=== PATIENT | female | born 1955 | race Hispanic/Latino ===

== ENCOUNTER 2018-04-04 08:21 | Emergency (ER) | payer OTHER ==
--- OUTSIDE RECORDS SUMMARY | 2018-04-04 08:23 | XMS REPORT ---
:1955 Author Organization [employer] Care Team Providers Name Role Phone Salomón Adler Provider Role Unavailable Allergies, Adverse Reactions, Alerts Substance Reaction Event Type N.K.D.A. Info Not Available Non Drug Allergy Problems Problem Type Condition Code Onset Dates Condition Status Problem History of kidney stones Z87.442 Active Problem HTN, goal below 140/90 I10 Active Problem Mixed hyperlipidemia E78.2 Active Assessment Encounter for screening colonoscopy Z12.11 Active Medications Medication Code Code Instructions Start End Date Status Dosage System Date Hair Skin [facility] [id number] - Orally Active as directed Nails Results No Known Results Summary Purpose [employer] Submission
--- OUTSIDE RECORDS SUMMARY | 2018-04-04 08:23 | XMS REPORT ---
:1955 Author Organization [employer] Care Team Providers Name Role Phone Fernandez, Victor M Provider Role Unavailable Allergies, Adverse Reactions, Alerts Substance Reaction Event Type N.K.D.A. Info Not Available Non Drug Allergy Problems Problem Type Condition Code Onset Dates Condition Status Assessment Screening mammogram, encounter for Z12.31 Active Assessment History of kidney stones Z87.442 Active Assessment Screening for colon cancer Z12.11 Active Assessment Encounter for screening for other Z11.59 Active viral diseases Problem History of kidney stones Z87.442 Active Problem HTN, goal below 140/90 I10 Active Problem Mixed hyperlipidemia E78.2 Active Assessment Mixed hyperlipidemia E78.2 Active Assessment HTN, goal below 140/90 I10 Active Assessment Encounter for preventative adult Z00.01 Active health care exam with abnormal findings Medications Medication Code Code Instructions Start End Date Status Dosage System Date Hair Skin [facility] [id number] - Orally Active as directed Nails Results No Known Results Summary Purpose [employer] Submission
[2018-04-04] MEDS ORDERED: KETOROLAC 30 MG/ML INJ ONE (08:53)
--- NOTE | 2018-04-04 11:19 | EDPHYS ---
Physician Documentation [facility] Name: Chika Mariee Age: 62 yrs Sex: Female : 1955 Arrival Date: 04/04/2018 Time: 08:23 Bed 5 Private MD: Victor M Fernandez ED Physician Castillo Gonzalez HPI: 04/04 08:46 This 62 yrs old Female presents to ER via Unassigned with complaints of Leg rn Pain. 08:46 The patient presents with pain. The complaints affect the right quadriceps. Onset: The rn symptoms/episode began/occurred 3 day(s) ago. Modifying factors: The symptoms are alleviated by remaining still, the symptoms are aggravated by movement. Severity of symptoms: At their worst the symptoms were moderate, in the emergency department the symptoms have improved. The patient has not experienced similar symptoms in the past. The patient has not recently seen a physician. Reports RLE pain, intermittent, for 2-3 days, when this began tried a new exercise in her house, was walking with forceful backward kicks, did not stretch or warmup, pain only in quadricep area, no swelling, no skin change, no fall or direct trauma. No fever. . - Family history:: not pertinent. - Hospitalizations: : No recent hospitalization is reported. ROS: 08:46 Constitutional: Negative for fever, chills, and weight loss, Eyes: Negative for injury, rn pain, redness, and discharge, Cardiovascular: Negative for chest pain, palpitations, and edema, Respiratory: Negative for shortness of breath, cough, wheezing, and pleuritic chest pain, Abdomen/GI: Negative for abdominal pain, nausea, vomiting, diarrhea, and constipation, Back: Negative for injury and pain, MS/Extremity: + RLE pain Skin: Negative for injury, rash, and discoloration, Neuro: Negative for headache, weakness, numbness, tingling, and seizure. Exam: 08:46 Constitutional: This is a well developed, well nourished patient who is awake, alert, rn and in no acute distress. Back: No spinal tenderness. No costovertebral tenderness. Full range of motion. Skin: Warm, dry with normal turgor. Normal color with no rashes, no lesions, and no evidence of cellulitis. MS/ Extremity: Pulses equal, no cyanosis. Neurovascular intact. Full, normal range of motion. Equal circumference. Mild tenderness right quadriceps region, soft, no skin changes MDM: 08:46 Patient medically screened. rn 08:46 Differential diagnosis: tendonitis, tendon injury, ligamentous injury, muscle strain. rn Data reviewed: vital signs, nurses notes, and as a result, I will discharge patient. Counseling: I had a detailed discussion with the patient and/or guardian regarding: the historical points, exam findings, and any diagnostic results supporting the discharge/admit diagnosis, the need for outpatient follow up, to return to the emergency department if symptoms worsen or persist or if there are any questions or concerns that arise at home. Special discussion: I discussed with the patient/guardian in detail that at this point there is no indication for admission to the hospital. It is understood, however, that if the symptoms persist or worsen the patient needs to return immediately for re-evaluation. Administered Medications: No medications were administered Disposition: 04/04/18 08:50 Discharged to Home. Impression: Strain of right quadriceps muscle, fascia and tendon. - Condition is Stable. - Discharge Instructions: Muscle Strain. - Medication Reconciliation Form, Thank You Letter, Antibiotic Education, Prescription Opioid Use form. - Follow up: Private Physician; When: As needed; Reason: Recheck today's complaints, Re-evaluation by your physician. - Problem is new. - Symptoms have improved. Signatures: Castillo Gonzalez MD MD rn Calderon, Audri, RN RN aa5 Corrections: (The following items were deleted from the chart) 09: 08:50 04/04/2018 08:50 Discharged to Home. Impression: Strain of right quadriceps aa5 muscle, fascia and tendon. Condition is Stable. Forms are Medication Reconciliation Form, Thank You Letter, Antibiotic Education, Prescription Opioid Use. Follow up: Private Physician; When: As needed; Reason: Recheck today's complaints, Re-evaluation by your physician. Problem is new. Symptoms have improved. rn
== END 2018-04-04 09:09 | disposition home or self-care (01) ==
LOC: ER 08:21
DX: S76.111A Strain of right quadriceps muscle, fascia and tendon, initial encounter (principal); Y93.B9 Activity, other involving muscle strengthening exercises; Y92.019 Unspecified place in single-family (private) house as the place of occurrence of the external cause

== ENCOUNTER 2018-04-13 07:35 | Day surgery (SDC) | payer OTHER ==
--- OUTSIDE RECORDS SUMMARY | 2018-04-13 07:47 | XMS REPORT ---
[...] Date Status Dosage System Date Hair Skin [facility] [id number] - Orally Active as directed Nails Results No Known Results Summary Purpose [employer] Submission
--- OUTSIDE RECORDS SUMMARY | 2018-04-13 07:47 | XMS REPORT ---
[...] Date Status Dosage System Date Hair Skin [facility] [id number] - Orally Active as directed Nails Results No Known Results Summary Purpose [employer] Submission
[2018-04-13] MEDS ORDERED: SIMETHICONE 40 MG/ 0.6 ML ONE (07:58)
[2018-04-13] MEDS ORDERED: Ringers Lactate 1,000 ML IV ONE (08:07)
[2018-04-13] MEDS ORDERED: PROPOFOL 200 MG/20 ML VIAL IV ONE (08:38)
[2018-04-13] MEDS ORDERED: MIDAZOLAM HCL 2 MG/2 ML INJ ONE (08:39)
--- NOTE | 2018-04-13 09:03 | ENDO RPT ---
[address], [address] COLONOSCOPY PROCEDURE REPORT EXAM DATE: 04/13/2018 PATIENT NAME: Chika Mariee MR #: [id number] BIRTHDATE: 1955 ATTENDING: Salomón Adler DR STATUS: outpatient CONVERSION WORKER: Shazia Gray RN and Valeriy Florian [facility] INDICATIONS: The patient is a 62 yr old Female here for a colonoscopy due to colon cancer screening PROCEDURE PERFORMED: Colonoscopy with biopsy - cold polypectomy MEDICATIONS: Per Anesthesia. ESTIMATED BLOOD LOSS: None CONSENT: The patient understands the risks and benefits of the procedure and understands that these risks include, but are not limited to: sedation, allergic reaction, infection, perforation and/or bleeding. Alternative means of evaluation and treatment include, among others: physical exam, x-rays, and/or surgical intervention. The patient elects to proceed with this endoscopic procedure. DESCRIPTION OF PROCEDURE: During intra-op preparation period all mechanical medical equipment was checked for proper function. Hand hygiene and appropriate measures for infection prevention was taken. Procedure, possible complications, alternatives including, but not limited to possibility of bleeding, perforation, tear, infection, sepsis, need for surgery, need for blood transfusion, were explained to the patient. After the risks, benefits and alternatives of the procedure were thoroughly explained, Informed consent was verified, confirmed and timeout was successfully executed by the treatment team. The patient was placed in the left lateral position. A digital rectal exam was performed and revealed internal hemorrhoids. After appropriate level of anesthesia, the scope was passed. The EC-[id number] ([id number]) endoscope was introduced through the anus and advanced to the cecum, which was identified by both the appendix and ileocecal valve. The quality of the prep was poor. The instrument was then slowly withdrawn as the colon was fully examined. Scope withdrawal time was 10 minutes. COLON FINDINGS: Mild diverticulosis was noted throughout the entire examined colon. No bleeding was noted from the diverticulosis. A few small diminutive smooth and polypoid shaped pedunculated polyps were found in the right colon. A polypectomy was performed with a cold snare and with cold forceps. The resection was complete, the polyp tissue was completely retrieved and sent to histology. Small internal hemorrhoids were found. Retroflexed views revealed no abnormalities. The scope was then completely withdrawn from the patient and the procedure terminated. ADVERSE EVENTS: There were no complications. IMPRESSIONS: 1. Mild diverticulosis was noted throughout the entire examined colon 2. Few small diminutive pedunculated polyps were found in the right colon; polypectomy was performed with a cold snare and with cold forceps 3. Small internal hemorrhoids RECOMMENDATIONS: 1. avoid NSAIDS for 2 weeks 2. await biopsy results 3. follow-up: office 2 week(s) 4. increase dietary water 5. low fiber / diverticular diet 6. hemorrhoidal hygiene RECALL: Return in 2 year(s) for Colonoscopy, pending biopsy results. Poor Prep - solid stool Salomón Adler DR eSigned: Salomón Adler DR 04/13/2018 9:03 AM cc: CPT CODES: ICD9 CODES: PATIENT NAME: Chika Mariee MR#: [id number]
== END 2018-04-13 09:46 | disposition home or self-care (01) ==
LOC: OR 07:35
PROVIDERS: ATTEND Surgery
PROC: 0DBF8ZX Excision of Right Large Intestine, Via Natural or Artificial Opening Endoscopic, Diagnostic (ICD-10-PCS; principal; 2018-04-13 08:30)
DX: Z12.11 Encounter for screening for malignant neoplasm of colon (principal); K63.5 Polyp of colon; K57.90 Diverticulosis of intestine, part unspecified, without perforation or abscess without bleeding; K64.8 Other hemorrhoids; E78.2 Mixed hyperlipidemia; I10 Essential (primary) hypertension; Z80.42 Family history of malignant neoplasm of prostate; Z80.3 Family history of malignant neoplasm of breast; Z80.7 Family history of other malignant neoplasms of lymphoid, hematopoietic and related tissues; Z83.3 Family history of diabetes mellitus; Z82.49 Family history of ischemic heart disease and other diseases of the circulatory system
CPT/HCPCS: 88305; J2250